=== PATIENT | female | born 1985 | race Caucasian/White ===

== ENCOUNTER → 2022-06-21 | Outpatient (CLI) | payer BC ==
[~2022-06-21] MED LIST: ACET325; ALBU90OI INH; Aviane1 EACH PO; BENZ100A PO; CEPH500 PO; CIPR500 PO; HYDACE5 PO; IBUP800 PO; METERG.2 PO; MULVITMINE; MULVITMINE PO; MULVITMINF; Macrobid 100 M100 MG PO; NITR100CA PO; ONDA4; ONDA4ODT MM; ONDA8ODT MM; OSEL75CA PO; OXYACE5T PO; PHENA200 PO; PRED10 PO; PRENATAL VIT; PROM25 PO; PROM25S PR; Prednisone20 MG PO; Pyridium100 MG PO; RXCLIN PO; RXPHEN200 PO; VARE1 PO
== END | disposition home or self-care (01) ==
LOC: LAB SHORT 12:56 → LAB 12:56
DX: N39.0 Urinary tract infection, site not specified (principal)
CPT/HCPCS: 87086

== ENCOUNTER → 2022-10-14 | Outpatient (CLI) | payer BC ==
[2022-10-18 15:09] LABS: HPV 16 Negative (Negative); HPV 18 Negative (Negative); HPV OTHER HR TYPES Negative (Negative)
== END | disposition home or self-care (01) ==
LOC: LAB 15:20 → LAB SHORT 15:20
PROVIDERS: Registered Nurse Community Health
DX: Z12.4 Encounter for screening for malignant neoplasm of cervix (principal)
CPT/HCPCS: 87624; G0145

== ENCOUNTER → 2022-12-22 | Outpatient (CLI) | payer BC ==
[~2022-12-22] MED LIST changes: +VENL150ER PO
[2022-12-22 18:40] LABS: BASOPHILS ABSOLUTE AUTO 0.02 K/mm3 (0.00-0.23); BASOPHILS PERCENT AUTO 0 % (0-2); EOSINOPHILS ABSOLUTE AUTO 0.04 K/mm3 (0.00-0.68); EOSINOPHILS PERCENT AUTO 1 % (0-6); Hematocrit 40.8 % (33.0-51.0); Hemoglobin 13.1 g/dL (11.5-16.0); IMMATURE GRAN ABSOLUTE AUTO 0.01 K/mm3 (0.00-0.10); IMMATURE GRAN PERCENT AUTO 0 % (0-1); LYMPHOCYTES ABSOLUTE AUTO 1.72 K/mm3 (0.84-5.20); LYMPHOCYTES PERCENT AUTO 30 % (21-46); MONOCYTES ABSOLUTE AUTO 0.39 K/mm3 (0.16-1.47); MONOCYTES PERCENT AUTO 7 % (4-13); Mean Corpuscular HGB 30.2 pg (26.0-34.0); Mean Corpuscular HGB Conc 32.1 g/dL (31.5-36.5); Mean Corpuscular Volume 94 fL (80-100); NEUTROPHILS ABSOLUTE AUTO 3.64 K/mm3 (1.96-9.15); NEUTROPHILS PERCENT AUTO 63 % (41-73); Platelet Count 262 K/mm3 (150-400); RDW Coefficient Variation 13.6 % (11.7-14.2); RDW Standard Deviation 47.3 fL (35.1-46.3); Red Blood Cell Count 4.34 M/mm3 (3.80-5.20); White Blood Cell Count 5.82 K/mm3 (4.00-11.30)
[2022-12-22 18:49] LABS: Free Thyroxine 0.95 ng/dL (0.70-1.60); Percent Saturation 13.5 % (15.0-50.0)
[2022-12-22 19:08] LABS: Thyroid Stimulating Hormone 0.951 uIU/mL (0.360-4.800); Triiodothyronine, Free 2.58 pg/mL (2.18-3.98)
[2022-12-24 09:10] LABS: THYROID PEROXIDASE (TPO) AB <9 IU/mL (0-34)
[2022-12-25 17:07] LABS: THYROGLOBULIN ANTIBODY <1.0 IU/mL (0.0-0.9)
== END | disposition home or self-care (01) ==
LOC: LAB SHORT 12:00 → LAB 12:00
PROVIDERS: Nurse Practitioner Family
DX: D64.9 Anemia, unspecified (principal); L65.9 Nonscarring hair loss, unspecified; R53.81 Other malaise; R53.83 Other fatigue
CPT/HCPCS: 82607; 82728; 82746; 83540; 83550; 84439; 84443; 84481; 85025

== ENCOUNTER 2023-01-27 09:43 | Day surgery (SDC) | payer BC ==
[2023-01-27] VITALS (8 sets, daily range): BP systolic 118–132; BP diastolic 72–89
[~2023-01-27] VITALS: Ht 165.1 cm; Wt 86.8 kg
[~2023-01-27 09:43] MED LIST changes: +BUTALB-ACETAMI1 EAC5 PO; +FISH OIL 1,2001 EAC7 PO; +VITAMIN D310 MC4 PO
--- NOTE | 2023-01-27 10:42 | NUR ---
Ambulatory in Day Surgery History, Chart, Medications and Allergies reviewed before start of procedure.Patient confirms NPO status and agrees with scheduled surgery. Lungs clear T/O to Auscultation. NO PREOP SHOWER DONE. Patient States Post-Procedure ride home has been arranged.
--- NOTE | 2023-01-27 13:03 | NUR ---
Patient up to Ambulate independently. Gait steady. Discharge instructions reviewed with patient. Patient verbalizes understanding. Copy given to patient to take home. Patient States Post-Procedure ride home has been arranged. Discharged via wheelchair to private car for ride home. DRESSING APPEARED WNL RECENTLY BY FEMALE CROSSB[employer] FRAME WIRER. PT DENIES PAIN,N/V,SOB,CP. PT REPORTS READY TO GO HOME. BEEN TO BEDSIDE,PRESENT DURING DISCHARGE INSTRUCTIONS.
== END 2023-01-27 13:03 | disposition home or self-care (01) ==
LOC: ORSCMMR 09:43 → ORD 11:00 → ORSCMMR 13:03
PROVIDERS: Surgery
PROC: 06BY0ZC Excision of Hemorrhoidal Plexus, Open Approach (ICD-10-PCS; principal; 2023-01-27 11:00)
PROC: 3E0H3GC Introduction of Other Therapeutic Substance into Lower GI, Percutaneous Approach (ICD-10-PCS; principal; 2023-01-27 11:00)
DX: K60.2 Anal fissure, unspecified (principal); K64.4 Residual hemorrhoidal skin tags; F41.9 Anxiety disorder, unspecified; J45.909 Unspecified asthma, uncomplicated; E66.9 Obesity, unspecified; Z68.31 Body mass index [BMI] 31.0-31.9, adult; Z79.899 Other long term (current) drug therapy; Z87.891 Personal history of nicotine dependence
CPT/HCPCS: 88304; J0585; J1100; J2250; J2405; J2704; J3010; J7120